=== PATIENT | male | born 1945 | race Caucasian/White ===

== ENCOUNTER 2017-11-24 10:43 | Emergency (ER) | payer MEDICARE, OTHER ==
[~2017-11-24] VITALS: Ht 185.4 cm; Wt 108.9 kg
[2017-11-24] MEDS ORDERED: [UNRECOGNIZED DRUG - REMARK] (10:55)
[2017-11-24] MEDS ORDERED: [UNRECOGNIZED DRUG - REMARK] (10:55)
[2017-11-24] MEDS ORDERED: ONDANSETRON 4 MG/2 ML VIAL ONE (10:57)
[2017-11-24] MEDS ORDERED: IV NORMAL SALINE 1000 ML BAG IV ONE (11:00)
[2017-11-24] MEDS ORDERED: ONDANSETRON 4 MG/2 ML VIAL IV ONE (11:00)
[2017-11-24 11:08] LABS: BASOPHILS % (AUTO) 0.6 % (0.0-2.0); EOSINOPHILS # (AUTO) 0.1 K/uL (0.0-0.7); EOSINOPHILS % (AUTO) 0.7 % (0.0-7.0); HEMATOCRIT 47.8 % (36.7-47.1); HEMOGLOBIN 16.3 g/dL (12.5-16.3); LYMPHOCYTES # (AUTO) 1.1 K/uL (20.0-40.0); LYMPHOCYTES % (AUTO) 15.1 % (20.5-51.5); MEAN CORPUSCULAR HEMOGLOBIN 30.6 uug (23.8-33.4); MEAN CORPUSCULAR HGB CONC 34 g/dL (32.5-36.3); MONOCYTES # (AUTO) 0.5 K/uL (2.0-10.0); MONOCYTES % (AUTO) 6.9 % (0.0-11.0); NEUTROPHILS # (AUTO) 5.7 K/uL (1.8-8.9); NEUTROPHILS % (AUTO) 76.7 % (38.5-71.5); PLATELET COUNT (AUTO) 199 K/uL (152-348); RED BLOOD CELL COUNT(AUTO) 5.31 MIL/uL (4.06-5.63); WHITE BLOOD COUNT (AUTO) 7.4 K/uL (3.6-10.2)
[2017-11-24] MEDS ORDERED: MORPHINE SULFATE 4 MG/1 ML DISP.SYRIN ONE ×2 (11:16→13:14)
[2017-11-24 11:19] LABS: CREATININE 1.1 mg/dL (0.6-1.3); POTASSIUM 3.9 mmol/L (3.5-5.1)
[2017-11-24 11:24] LABS: BILIRUBIN,DIRECT 0.1 mg/dL (0.0-0.2); BILIRUBIN,TOTAL 0.6 mg/dL (0.2-1.0); TOTAL PROTEIN, SERUM 7.1 g/dL (6.4-8.2)
[2017-11-24] MEDS ORDERED: KETOROLAC TROMETHAMINE 30 MG INJ IVP ONE (12:00)
[2017-11-24] MEDS ORDERED: MORPHINE SULFATE 2 MG/1 ML DISP.SYRIN IV ONE ×2 (12:00→13:15)
[2017-11-24] MEDS ORDERED: KETOROLAC TROMETHAMINE 30 MG INJ ONE (12:05)
[2017-11-24 12:10] LABS: *BILIRUBIN,URIN NEGATIVE (NEGATIVE); *BLOOD, URINE 2+ (NEGATIVE); *CLARITY,URINE SLIGHTLY HAZY (CLEAR); *COLOR,URINE YELLOW (YELLOW); *KETONES,URINE NEGATIVE (NEGATIVE); *PROTEIN,URINE NEGATIVE (NEGATIVE); *UROBILINOGEN,URINE 0.2 E.U./dl (NORMAL); LEUKOCYTE ESTERASE ,URINE NEGATIVE (NEGATIVE); NITRITE, URINE NEGATIVE (NEGATIVE); PH,URINE 7.5 (5.0-8.0); UGLUCOSE NEGATIVE (NEGATIVE)
[2017-11-24 12:15] LABS: BACTERIA,URINE NONE SEEN /HPF (NONE SEEN); WBC,URINE 0-3 /HPF (0-3)
[2017-11-24 12:16] LABS: SQUAMOUS EPITHELIAL CELL,UR FEW /HPF (NONE SEEN)
--- NOTE | 2017-11-24 13:40 | NUR ---
Patient discharged to home in stable conditon. Written and verbal after care instructions given. Patient verbalizes understanding of instructions.pot walks in steady gait. pt with . pt not driving
[2017-11-24 13:53] VITALS: BP 161/89
== END 2017-11-24 13:15 | disposition home or self-care (01) ==
LOC: ER 10:43
DX: N20.0 Calculus of kidney (principal); E78.5 Hyperlipidemia, unspecified
CPT/HCPCS: 36415; 83690; 85025; A4663; J1885; J2270; J2405; J7030

== ENCOUNTER 2017-11-26 12:31 | Emergency (ER) | payer MEDICARE, OTHER ==
[~2017-11-26] VITALS: Ht 185.4 cm; Wt 108.9 kg
[~2017-11-26 12:31] MED LIST: [UNRECOGNIZED DRUG - REMARK]; [UNRECOGNIZED DRUG - REMARK]
[2017-11-26] MEDS ORDERED: GLYCERIN ADULT RECTAL SUPP EACH RC ONE ×2 (15:00→15:05)
[2017-11-26] MEDS ORDERED: MAGNESIUM CITRATE 296 ML BOTTLE ONE (15:07)
[2017-11-26] MEDS ORDERED: MAGNESIUM CITRATE 296 ML BOTTLE PO ONE (15:15)
[2017-11-26] MEDS ORDERED: BISACODYL 10 MG SUPP.RECT RC ONE ×2 (15:24→15:30)
--- NOTE | 2017-11-26 15:30 | NUR ---
Pt was medicated wit suppository per order.
[2017-11-26] MEDS ORDERED: DIATR MEGLU/DIATRIZOATE SODIUM 120 ML BOTTLE ONE (16:12)
[2017-11-26 16:51] LABS: CREATININE 1.3 mg/dL (0.6-1.3); POTASSIUM 3.7 mmol/L (3.5-5.1)
[2017-11-26 16:52] LABS: BASOPHILS % (AUTO) 0.1 % (0.0-2.0); HEMATOCRIT 50.4 % (36.7-47.1); HEMOGLOBIN 16.9 g/dL (12.5-16.3); LYMPHOCYTES # (AUTO) 0.8 K/uL (20.0-40.0); LYMPHOCYTES % (AUTO) 7.5 % (20.5-51.5); MEAN CORPUSCULAR HEMOGLOBIN 30.5 uug (23.8-33.4); MEAN CORPUSCULAR HGB CONC 34 g/dL (32.5-36.3); MEAN CORPUSCULAR VOLUME 91.1 fL (73.0-96.2); MONOCYTES % (AUTO) 8.6 % (0.0-11.0); NEUTROPHILS # (AUTO) 9.4 K/uL (1.8-8.9); NEUTROPHILS % (AUTO) 83.8 % (38.5-71.5); PLATELET COUNT (AUTO) 197 K/uL (152-348); RED BLOOD CELL COUNT(AUTO) 5.54 MIL/uL (4.06-5.63); WHITE BLOOD COUNT (AUTO) 11.3 K/uL (3.6-10.2)
[2017-11-26 16:57] LABS: BILIRUBIN,TOTAL 1.5 mg/dL (0.2-1.0); TOTAL PROTEIN, SERUM 8.3 g/dL (6.4-8.2)
--- NOTE | 2017-11-26 17:24 | NUR ---
Pt was taken to CT scan.
--- NOTE | 2017-11-26 18:00 | NUR ---
Pt is back from CT scan .Denies pain,discomfort.
--- NOTE | 2017-11-26 18:46 | NUR ---
Pt was seen by .
[2017-11-26 19:12] VITALS: BP 130/80
== END 2017-11-26 19:13 | disposition home or self-care (01) ==
LOC: ER 12:32
DX: K59.00 Constipation, unspecified (principal); N13.30 Unspecified hydronephrosis; K80.20 Calculus of gallbladder without cholecystitis without obstruction; N20.0 Calculus of kidney; R10.9 Unspecified abdominal pain; I10 Essential (primary) hypertension; E78.5 Hyperlipidemia, unspecified
CPT/HCPCS: 36415; 74021; 74176; 80053; 85025; 99285; A4663; Q9963